=== PATIENT | female | born 1995 | race Caucasian/White ===

== ENCOUNTER 2017-12-13 23:07 | Emergency (ER) | payer SELFPAY ==
[~2017-12-13] VITALS: Ht 170.2 cm; Wt 72.0 kg
[2017-12-14] LABS: HEMATOCRIT 38.4 % (36.0-46.0); HEMOGLOBIN 13.4 G/DL (11.9-15.5); MCH 31.1 PG (29.0-34.0); MCHC 34.9 G/DL (30.0-36.0); MCV 89.1 FL (83-99); PLATELET COUNT 295 K/uL (156-360); RBC DIS.WIDTH-CV 11.3 % (11.8-14.6); RBC DIS.WIDTH-SD 36.5 % (39-53); RED BLOOD COUNT 4.31 M/uL (3.80-5.20); WHITE BLOOD COUNT 9.6 K/uL (4.1-10.2)
[2017-12-14 00:09] LABS: CHLORIDE 105 mEq/L (99-109); POTASSIUM 3.8 mEq/L (3.7-5.4); SODIUM 139 mEq/L (136-147)
[2017-12-14 00:10] LABS: AMYLASE 54 IU/L (1-118)
[2017-12-14 00:12] LABS: GLUCOSE 104 mg/dL (70-99)
[2017-12-14 00:14] LABS: TOTAL BILIRUBIN 0.2 mg/dL (0.0-1.0)
[2017-12-14 00:15] LABS: ALKALINE PHOSPHATASE 93 IU/L (3-129); CREATININE 0.8 mg/dL (0.6-1.3); GFR ESTIMATE (CALCULATED) > 59 mL/min/
[2017-12-14 00:16] LABS: UREA NITROGEN (BUN) 15 mg/dL (9-23)
[2017-12-14 00:17] LABS: AST (GOT) 14 IU/L (2-34)
[2017-12-14 00:18] LABS: ALT (GPT) 12 IU/L (3-49)
[2017-12-14 00:19] LABS: LIPASE 23 U/L (1.0-51.0)
[2017-12-14 00:25] LABS: QUANTITATIVE HCG < 4.0 MIU/ML
[2017-12-14] MEDS ORDERED: TRAMADOL HCL50 MG PO (00:55)
[2017-12-14] MEDS ORDERED: MOTRIN600 MG PO (00:55)
[2017-12-14 01:20] VITALS: BP 128/72
== END 2017-12-14 01:21 | disposition home or self-care (01) ==
LOC: EME 23:07
PROVIDERS: Physician Assistant
DX: K80.20 Calculus of gallbladder without cholecystitis without obstruction (principal); F17.200 Nicotine dependence, unspecified, uncomplicated
CPT/HCPCS: 76705; 80053; 82150; 83690; 84702; 85027; 99281; 99284

== ENCOUNTER 2018-01-02 10:12 | Day surgery (SDC) | payer SELFPAY ==
[~2018-01-02] VITALS: Ht 170.2 cm; Wt 69.9 kg
[~2018-01-02 10:12] MED LIST: ADVIL200 MG PO; BIRTH CONTROL PILL PO; MOTRIN600 MG PO; TRAMADOL HCL50 MG PO
[2018-01-02 10:44] VITALS: BP 118/72
[2018-01-02] MEDS ORDERED: NORCO 5/3251 TABLET PO (13:10)
[2018-01-02 14:12] VITALS: BP 116/59
[2018-01-02 15:12] VITALS: BP 113/74
== END 2018-01-02 15:30 | disposition home or self-care (01) ==
LOC: SDC 10:12
PROVIDERS: Surgery
PROC: 0FT44ZZ Resection of Gallbladder, Percutaneous Endoscopic Approach (ICD-10-PCS; principal; 2018-01-02)
DX: K80.10 Calculus of gallbladder with chronic cholecystitis without obstruction (principal); F17.200 Nicotine dependence, unspecified, uncomplicated
CPT/HCPCS: 81025; 88304; J0131; J0690; J1100; J1170; J3010